=== PATIENT | female | born 1965 | race Caucasian/White ===

== ENCOUNTER 2021-03-09 15:14 | Emergency (ER) | payer OTHER ==
[~2021-03-09] VITALS: Ht 165.1 cm; Wt 77.1 kg
[~2021-03-09 15:14] MED LIST: ALBUTEROL INHALER; ATOR20 PO; CIPR500 PO; DOXY100 PO; Ginger500 MG PO; HYDGUAL120 PO; IBUP600 PO; LEVSOD25 PO; MAGNESIUM CITR100 MG PO; OXYASA5T PO; PRED20 PO; PROM25 PO; Roxicodone5 MG PO; SULTRIDS PO
[2021-03-09] MEDS ORDERED: OXAYDO5 M1 PO (17:20)
== END 2021-03-09 17:41 | disposition home or self-care (01) ==
LOC: ER 15:14
DX: S82.65XA Nondisplaced fracture of lateral malleolus of left fibula, initial encounter for closed fracture (principal); F17.210 Nicotine dependence, cigarettes, uncomplicated; Z88.6 Allergy status to analgesic agent; Z91.012 Allergy to eggs; Z79.899 Other long term (current) drug therapy; W17.2XXA Fall into hole, initial encounter
CPT/HCPCS: 29515; 73610; 99283-25; A9270

== ENCOUNTER → 2021-07-12 | Outpatient (CLI) | payer OTHER ==
[~2021-07-12] MED LIST changes: +OXAYDO5 M1 PO
== END ==
LOC: LAB SHORT 07:20 → PLD 07:20
DX: R21 Rash and other nonspecific skin eruption (principal)
CPT/HCPCS: 88312

== ENCOUNTER → 2021-11-25 | Outpatient (CLI) | payer OTHER | LOC: LAB 17:09 → LAB SHORT 17:09 | DX: L08.9 Local infection of the skin and subcutaneous tissue, unspecified (principal) | CPT/HCPCS: 87070; 87205 ==

== ENCOUNTER → 2022-04-11 | Outpatient (CLI) | payer OTHER ==
[2022-04-13 16:09] LABS: HPV 16 Negative (Negative); HPV 18 Negative (Negative); HPV OTHER HR TYPES Negative (Negative)
== END | disposition home or self-care (01) ==
LOC: LAB SHORT 08:00 → LAB 08:00
PROVIDERS: Nurse Practitioner Family
DX: Z12.4 Encounter for screening for malignant neoplasm of cervix (principal)
CPT/HCPCS: 87624; G0145